=== PATIENT | male | born 2000 | race African-American/Black ===

== ENCOUNTER 2021-07-21 21:40 | Emergency (ER) | payer SELFPAY ==
[~2021-07-21] VITALS: Ht 182.9 cm; Wt 72.3 kg
[2021-07-21 21:45] VITALS: TEMP 98.7
[2021-07-21 23:19] VITALS: BP 135/90; PULSE 71
== END 2021-07-21 23:19 | disposition home or self-care (01) ==
LOC: COL.ER 21:40
DX: S62.316A Displaced fracture of base of fifth metacarpal bone, right hand, initial encounter for closed fracture (principal); F17.290 Nicotine dependence, other tobacco product, uncomplicated; W22.01XA Walked into wall, initial encounter